=== PATIENT | female | born 1995 | race Caucasian/White ===

== ENCOUNTER 2016-09-06 22:31 | Emergency (ER) | payer OTHER ==
[~2016-09-06] VITALS: Ht 160 cm; Wt 61.4 kg
[~2016-09-06 22:31] MED LIST: ONDA4TAB9 PO
[2016-09-06 22:46] VITALS: BP 149/101; PULSE 116; RESP 16; O2SAT 100
--- NOTE | 2016-09-06 22:54 | ED.REPORT ---
HPI-General Illness Date of Service September 06, 2016 ED Provider: Andrew Bro MD The patient is a 21 year old female who presents to the ED due to 5 days of sore throat. She has had a fever for the past 48 hrs measured 100-101 F. Associated symptoms include nausea, vomiting, diaphoresis, and chills. She cannot swallow due to her swollen throat and has not been able to keep down any liquids or food. She denies cough, sneezing, diarrhea, dysuria, abdominal pain, ear pain, or rash. Many other people at work have been ill as well. Nursing Notes Stated Complaint: GENERAL COMPLAINT Chief Complaint: General Complaint Nursing Notes Reviewed: Yes ([employer], [employer] not reconciled) Allergies: Coded Allergies: amoxicillin (Verified Adverse Reaction, Severe, vomitting, 09/06/16) Scheduled PRN Hydrocodone-Acetaminophen 5-325 mg (Hydrocodone-Acetaminophen 5-325 mg) 1 Each Tablet 1 TABLET PO Q4H PRN PRN For Pain Ondansetron ODT (Zofran ODT) 4 Mg Tablet 4 MG PO Q4H PRN PRN For Nausea Ondansetron ODT (Ondansetron ODT) 8 Mg Tab.rapdis 8 MG PO Q4H PRN PRN For Nausea General Time Seen by MD: 22:53 Chief Complaint Sore throat Hx Obtained From: Patient Arrived By: Walk-in Sudden in Onset?: Yes Onset Occurred: 5 days ago Symptom Duration: Since onset Associated with: Reports: Nausea, Vomiting Recent Healthcare: No recent doctor visit, No recent hospitalization Similar Sx Previous: No Past Medical History Past Medical History Notes: Recently moved to area from [place] Past Medical History On suboxone therapy Past Surgical History Denies Smoking History Never Smoker Social History Alcohol Use: Denies alcohol use Drug Use: Denies drug use, In recovery (on suboxone) Ambulatory Status Independent Review of Systems Full Review of Systems Constitutional: Reports: Chills, Fever Ears / Nose / Throat: Denies: Earache bilateral Respiratory: Denies: Non-productive cough GI: Reports: Nausea, Vomiting, Denies: Abdominal pain, Diarrhea Female: Denies: Dysuria Skin: Denies Rash Complete sys rev & neg: except as marked. Physical Exam Vital Signs Vital Signs Date Time Temp Pulse Resp B/P Pulse Ox O2 Delivery O2 Flow Rate FiO2 09/06/16 22:46 37.9 116 16 149/101 100 Room Air Initial VS: Reviewed, Vital signs abnormal (fever, tachycardia) Respiratory: Breath sounds normal, Clear to auscultation, No respiratory distress Abdomen / GI: Soft, Non-tender, No guarding, No rebound, No distention Extremities: Vascular intact, Neuro intact, No swelling, No tenderness General/Constitutional: Awake fatigued uncomfortable Head / Eyes: Atraumatic, Normocephalic heavy makeup makes it hard to asses facial pallor ENT: Airway patent throat erythematous no gross tonsillar exudate no peritonsillar abscess mild submandibular adenopathy Cardiovascular: No murmurs, No rubs Heart Rate / Rhythm: Positive: Tachycardia Skin: Atraumatic, Color NL, No rash Interpretation & Diagnostics Lab Results Interpretation Result Diagram: 09/06/167 09/06/167 Test 09/06/16 23:36 09/06/16 23:57 09/06/16 23:58 Urine Color Yellow (YELLOW) Urine Appearance Hazy (CLEAR,HAZY) Urine pH 5.0 (5.0-8.0) Urine Specific [place] 1.025 (1.003-1.035) Urine Protein Negativemg/dL (NEG,TRACE) Urine Glucose (UA) Negativemg/dL (NEGATIVE) Urine Ketones Negativemg/dL (NEGATIVE) Urine Occult Blood Negative (NEGATIVE) Urine Nitrite Negative (NEGATIVE) Urine Bilirubin Negative (NEGATIVE) Urine Urobilinogen Normalmg/dL (NORMAL) Urine Leukocyte Esterase Negative (NEGATIVE) Urine RBC 0-2/hpf (0-2) Urine WBC 0-5/hpf (0-5) Urine Epithelial Cells Many/hpf (NONE-MOD) Urine Crystals None seen (NONE SEEN) Urine Bacteria Few/hpf (NONE-FEW) Urine Hyaline Casts None/lpf (NONE) Urine Granular Casts None seen (NONE SEEN) Urine Waxy Casts None seen (NONE SEEN) Urine Red Blood Cell Casts None seen (NONE SEEN) Urine White Blood Cell Casts None seen (NONE SEEN) Urine Mucus Present (None Seen) Urine Trichomonas None seen (NONE SEEN) Urine Yeast None (NONE SEEN) Urinalysis Comment None Urine Culture Reflexed Not indicated White Blood Count 7.3th/mm3 (3.8-10.1) Red Blood Count 4.22mil/mm3 (3.90-5.20) Hemoglobin 13.1g/dL (12.0-15.6) Hematocrit 38.7% (35.0-46.0) Mean Corpuscular Volume 91.7fL (81-100) Mean Corpuscular Hemoglobin 31.0pg (27.0-35.0) Mean Corpuscular Hemoglobin Concent 33.9% (32.0-37.0) Red Cell Distribution Width 12.1% (12.3-15.4) Platelet Count 195bil/L (150-400) Neutrophils (%) (Auto) 75.8% (40-74) Lymphocytes (%) (Auto) 16.1% (14-46) Monocytes (%) (Auto) 7.1% (4-12) Eosinophils (%) (Auto) 0.5% (0-5) Basophils (%) (Auto) 0.4% (0-3) Sodium Level 141mEq/L (134-144) Potassium Level 4.3mEq/L (3.5-5.2) Chloride Level 103mEq/L (97-108) Carbon Dioxide Level 24mmol/L (18-29) Blood Urea Nitrogen 9mg/dL (6-20) Creatinine 0.49mg/dL (0.57-1.00) Estimat Glomerular Filtration Rate 226mL/min (>59) Glucose Level 93mg/dL (60-99) Calcium Level 10.0mg/dL (8.5-10.1) Total Bilirubin 0.5mg/dL (0.0-1.2) Aspartate Amino Transf (AST/SGOT) 18U/L (0-50) Alanine Aminotransferase (ALT/SGPT) 13U/L (0-32) Alkaline Phosphatase 49U/L (25-150) Total Protein 7.9g/dL (6.4-8.4) Albumin 4.5g/dL (3.4-5.0) Human Chorionic Gonadotropin, Qual 0.500 (Negative) Hold Torres Top Tube Received (Received) Lab Results Interpretation: CBC normal CMP normal Strep negative Re-Eval/Medical Decision Med Decision/Clinical Course This is a 21-year-old female presents complaining of several days of fevers chills, sore throat, worsening symptoms today. Reports that "everyone" around her [place]. She has no travel history, no cough, shortness of breath, she has had some nausea with poor intake, no diarrhea, no dysuria, no rashes or exanthems. Exam she has borderline febrile, tachycardic, and fatigue. She has mild tonsillar erythema, but no exudate, no signs of a retropharyngeal or peritonsillar abscess, no evidence of airway compromise or Derrick's angina. She has mild submandibular mass adenopathy bilaterally, she is moderately tachycardic-but no murmurs. She has no track aguilar, no rashes or exanthems. Fussy appears fatigued, she does not appear toxic. IV was placed, she was hydrated and received supportive care with improvement. Rapid strep was negative, lab work was normal, UA was negative. She did receive supportive dose of dexamethasone. At this point and not finding any clinical exam findings or laboratory exam findings of a serious bacterial illness, making a viral etiology much more likely. She is improved on clinical treatment, and is being discharged on ibuprofen, when necessary ondansetron, and her continued Suboxone. A work note was provided. Condition is improved on reevaluation, she is being discharged in good condition. Routine and return precautions reviewed. Source of Hx: Old records Time of Eval: 00:40 Patient Status: Condition improved, Mild relief Re-Evaluation/Progress Note: Pt rechecked. She is slightly improved, but still nauseous. Plan for more medication. Differential Diagnosis: Negative: Abdominal pain, Acute coronary syndrome, Allergies, Cellulitis, Diabetes mellitus, Influenza, Medication refill, Neutropenia, Pharyngitis, acute, Pneumonia, Seizure disorder, Syncope Counseled Regarding: Diagnosis, Lab results, Need for follow-up, When/why to return to ED Discharge & Departure Primary Impression: Pharyngitis Pharyngitis/tonsillitis etiology: unspecified etiology Qualified Code: J02.9 - Acute pharyngitis, unspecified Disposition: Home Discharge Condition All VS Reviewed: Yes Condition: Stable Additional Instructions: 1. The strep test was negative, and your blood tests were normal. Sprains there were no markers of a bacterial infection causing her fever and sore throat , and suggest that is likely a virus. 2. This means that antibiotics are unlikely to be of benefit, and are not recommended. 3. Continue ibuprofen 400-800 mg up to 3 times a day for fever or pain. 4. Continue your suboxone. 5. If needed for nausea, take ondansetron-left dissolved vitamin the tongue-up to every 4 hours. 6. Drink small, frequent sips of fluids 7. Rest. 8. Symptoms are expected to start to improve over the next several days. 9. Return again if new or worsening symptoms occur. Referrals: Brittanie Lewis DO (PCP) Scribe Attestation Portion of this note were transcribed by Amanda Brock. I, Dr.Matthew Bro, personally performed the history, physical exam, and medical decision-making: I reviewed and confirmed the accuracy for the information in the transcribed note. Signed by: chaka Bhatt, 09/06/16 [id number] copies to: Brittanie Lewis Matthew F MD September 06, 2016 22:54 Amanda Brock September 06, 2016 23:01
[2016-09-06] MEDS ORDERED: 0.9% Sodium Chloride 1,000 ML IV ONE (23:00)
[2016-09-06] MEDS ORDERED: Dexamethasone Inj 10 MG in 0.9% Sodium Chloride-Pha MIX 50 ML IV ONE (23:00)
[2016-09-06] MEDS ORDERED: Ondansetron 2 mg/mL 2 mL Inj IVPUSH ONE (23:00)
[2016-09-06 23:43] LABS: APPEARANCE,URINE HAZY (CLEAR,HAZY); COLOR,URINE YELLOW (YELLOW); OCCULT BLOOD,URINE NEGATIVE (NEGATIVE); UROBILINOGEN,URINE NORMAL (NORMAL)
[2016-09-07 00:01] LABS: BASOPHILS % (AUTO) 0.4 % (0-3); EOSINOPHILS % (AUTO) 0.5 % (0-5); MONOCYTES % (AUTO) 7.1 % (4-12); Mean Corpuscular Volume 91.7 fL (81-100); NEUTROPHILS % (AUTO) 75.8 % (40-74); Platelet Count 195 bil/L (150-400)
[2016-09-07] MEDS: HYDROmorphone 0.5 mg/0.5 mL iSecure Syringe IVPUSH PRN ×2 (00:01→00:52)
[2016-09-07] MEDS ORDERED: Promethazine Inj 12.5 MG in 0.9% Sodium Chloride-Pha MIX 100 ML IV ONE (00:45)
[2016-09-07] MEDS ORDERED: _HYDROcodone/APAP 5-325 mg Tablet PO PRN (01:05)
[2016-09-07] MEDS ORDERED: _Ondansetron ODT 4 mg Tablet PO PRN (01:05)
[2016-09-07] MEDS ORDERED: ONDA8TAB10 PO (01:07)
[2016-09-07] MEDS ORDERED: HYDR-4003 PO (01:07)
[2016-09-07 01:54] VITALS: BP 108/67; PULSE 75; RESP 18; O2SAT 100
== END 2016-09-07 01:56 | disposition home or self-care (01) ==
LOC: SED 22:31
DX: J02.9 Acute pharyngitis, unspecified (principal); R50.9 Fever, unspecified; R11.2 Nausea with vomiting, unspecified; Z79.899 Other long term (current) drug therapy; Z88.1 Allergy status to other antibiotic agents
CPT/HCPCS: 36415; 80053; 81000; 84703; 85025; 87880; 96361; 96374; 96375; 99285; J1100; J1170; J2405; J2550; J7030